=== PATIENT | female | born 1970 | race African-American/Black ===

== ENCOUNTER 2017-09-29 02:50 | Emergency (ER) | payer OTHER ==
[~2017-09-29] VITALS: Ht 177.8 cm; Wt 79.4 kg
[2017-09-29] MEDS ORDERED: IRON (03:20)
[2017-09-29] MEDS ORDERED: VIT D (03:20)
[2017-09-29] MEDS ORDERED: CRESTOR (03:20)
--- NOTE | 2017-09-29 03:20 | NUR ---
Dr. Christianson at bedside for MSE.
[2017-09-29] MEDS ORDERED: diphenhydrAMINE 50 MG/1 ML VIAL IM ONE (03:30)
[2017-09-29] MEDS ORDERED: diphenhydrAMINE 50 MG/1 ML VIAL ONE (03:30)
--- NOTE | 2017-09-29 03:33 | NUR ---
Patient discharged to home in stable conditon. Written and verbal after care instructions given. Patient verbalizes understanding of instructions. Pt ambulated out of ER with steady gait, no acute signs of distress, VSS, all belongings taken.
[2017-09-29 03:34] VITALS: BP 130/77
== END 2017-09-29 03:36 | disposition home or self-care (01) ==
LOC: ER 02:53
DX: L29.9 Pruritus, unspecified (principal); E78.00 Pure hypercholesterolemia, unspecified; Z88.8 Allergy status to other drugs, medicaments and biological substances; Z79.899 Other long term (current) drug therapy
CPT/HCPCS: 96372; 99283; A4663; J1200